=== PATIENT | female | born 1955 | race Caucasian/White ===

== ENCOUNTER 2019-07-15 07:30 | Inpatient (IN) | payer MEDICARE, MEDICAID ==
[~2019-07-15] VITALS: Ht 162.6 cm; Wt 64.9 kg
[~2019-07-15 07:30] MED LIST: Pantoprazole Inj IVP ONE; SIMVASTATIN20 MG ORAL; Vancomycin 1gm/D5W 275ml IVPB ONE; WELLBUTRIN SR200 MG ORAL
[2019-08-05] VITALS (12 sets, daily range): BP systolic 105–131; BP diastolic 56–78
[2019-08-05] MEDS ORDERED: Vancomycin 1gm vial IVPB ONE (06:29)
[2019-08-05] MEDS ORDERED: Rocuronium Bromide 50mg/5ml Inj IV ONE (06:29)
[2019-08-05] MEDS ORDERED: Pantoprazole Inj ONE (06:29)
[2019-08-05] MEDS ORDERED: Sodium Chloride 10ml vial INJ ONE (06:37)
[2019-08-05] MEDS ORDERED: LR 1000ml 1,000 ML IVLG SCH (06:52)
[2019-08-05] MEDS ORDERED: Lidocaine 1% MPF 10mg/ml 5ml ONE (06:57)
[2019-08-05] MEDS ORDERED: Dexamethasone 4mg/ml vial ONE (06:57)
--- NOTE | 2019-08-05 06:57 | Immediate Post-Op Evaluation ---
Immediate Post-Op Evalulation Immediate Post-Op Evalulation Procedure: TLIF L4-5, L5-S1 Date of Evaluation: Aug 05, 2019 Time of Evaluation: 10:42 IV Fluids: 500 LR Blood Products: 0 Estimated Blood Loss: 40 Urinary Output: 195 Blood Pressure Systolic: 131 Blood Pressure Diastolic: 74 Pulse Rate: 76 Respiratory Rate: 16 O2 Sat by Pulse Oximetry: 100 Temperature (Fahrenheit): 98 Pain Score (1-10): 2 Nausea: No Vomiting: No Complications 0 Patient Status: awake, reacts, patent, extubated, none Hydration Status: adequate Dru Gram Vancomycin IV Given Within 1 Hr of Incision: Yes Time Given: 07:45 Miah Panda MD Aug 05, 2019 06:57
[2019-08-05] MEDS ORDERED: Lidocaine 1% Plain 30 ml INJ ONE (06:58)
[2019-08-05] MEDS ORDERED: Thrombin 5000 units spray kit TOPIC ONE (06:59)
[2019-08-05] MEDS ORDERED: Bacitracin Oint 15gm Tube TOPIC ONE (06:59)
[2019-08-05] MEDS ORDERED: Thrombin 5000 units TOPIC ONE ×2 (06:59→07:01)
[2019-08-05] MEDS ORDERED: Bupivacaine w/Epi 0.5% 30ml Vial INJ ONE (07:00)
[2019-08-05] MEDS ORDERED: Metoclopramide 10mg/2ml Inj IVP PRN (07:00)
[2019-08-05] MEDS ORDERED: Labetalol 5mg/ml 20ml vial IV PRN (07:00)
[2019-08-05] MEDS ORDERED: DiphenhydrAMINE 50mg/ml Inj IVP PRN (07:00)
[2019-08-05] MEDS ORDERED: LORazepam Inj 2mg/ml 1ml IV PRN (07:00)
[2019-08-05] MEDS ORDERED: Atropine Sulfate 0.4mg/ml inj IVP PRN (07:00)
[2019-08-05] MEDS ORDERED: Vancomycin 1gm/D5W 275ml IVPB ONE ×2 (07:00)
[2019-08-05] MEDS ORDERED: Gelfoam Absorbable 1gm powder pkt TOPIC ONE (07:00)
[2019-08-05] MEDS ORDERED: Bacitracin 50000 Units Vial ONE (07:00)
[2019-08-05] MEDS ORDERED: HYDROcodone/Acetamin 5/325 tab ORAL PRN (07:00)
[2019-08-05] MEDS ORDERED: Acetaminophen (Non formulary) 100 ML IV ONE (07:00)
[2019-08-05] MEDS ORDERED: Gelfoam Size TOPIC ONE (07:00)
[2019-08-05] MEDS ORDERED: Pantoprazole Inj IVP ONE (07:00)
[2019-08-05] MEDS ORDERED: fentaNYL 100 mcg/2 mL IV PRN (07:00)
[2019-08-05] MEDS ORDERED: oxyCODONE HCL/Acetaminophen 5/325mg ORAL PRN (07:00)
[2019-08-05] MEDS ORDERED: Ketorolac 30mg Inj IV PRN ×2 (07:00)
[2019-08-05] MEDS ORDERED: Meperidine 50mg/ml Inj(FOR RIGORS ONLY) IVP PRN (07:00)
[2019-08-05] MEDS ORDERED: Midazolam 2mg/2ml Inj IVP PRN (07:00)
[2019-08-05] MEDS ORDERED: Hydromorphone 0.5mg/0.5ml inj IVP PRN (07:00)
[2019-08-05] MEDS ORDERED: HYDROcodone/Acetamin 7.5/325 tab ORAL PRN ×2 (07:00→12:00)
[2019-08-05] MEDS ORDERED: Heparin 1000 units/ml 1ml Vial ONE (07:01)
[2019-08-05] MEDS ORDERED: fentaNYL 100 mcg/2 mL IV ONE (07:09)
--- NOTE | 2019-08-05 07:14 | Anethesia Preoperative Eval ---
Anesthesia Pre-op PMH/ROS General Date of Evaluation: Aug 05, 2019 Time of Evaluation: 07:36 Anesthesiologist: Sean ASA Score: ASA 2 Mallampati Score Class I : Soft palate, uvula, fauces, pillars visible Class II: Soft palate, uvula, fauces visible Class III: Soft palate, base of uvula visible Class IV: Only hard plate visible Mallampati Classification: Class I Surgeon: Emerson Diagnosis: Back Pain Surgical Procedure: TLIF L4-5, L5-S1 Anesthesia History: none Family History: no anesthesia problems Allergies: Coded Allergies: No Known Allergies (Unverified , 07/13/19) Medications: see eMAR Patient NPO?: Yes NPO Date: Aug 04, 2019 NPO Time: 1999 Past Medical History Cardiovascular: Reports: other - HL Neurologic/Psychiatric: Reports: depression/anxiety PSxH Narrative: C/S X 3, ZARI, R Ear repair Anesthesia Pre-op Phys. Exam Physician Exam Last Vital Signs Date Time Temp Pulse Resp B/P (MAP) Pulse Ox O2 Delivery O2 Flow Rate FiO2 08/05/19 07:06 97.5 69 18 125/77 (93) 97 Constitutional: NAD Neurologic: CN 2-12 intact Cardiovascular: RRR Respiratory: CTA Gastrointestinal: S/NT/ND Airway Exam Mallampati Score: Class I MO: full ROM: full Teeth: missing, intact Anesthesia Pre-op A/P Risk Assessment & Plan Assessment: ASA 2 Plan: GA, SED, GlideScope Go Status Change Before Surgery: No Pre-Antibiotics Dru Gram Vancomycin IV Given Within 1 Hr of Incision: Yes Time Given: 07:45 Miah Panda MD Aug 05, 2019 07:14
[2019-08-05] MEDS ORDERED: NS Irrig 1000ml IRRIG ONE ×2 (07:18→08:03)
[2019-08-05] MEDS ORDERED: LR 1000ml ONE (07:30)
[2019-08-05] MEDS ORDERED: Sterile Water Irrig 1000ml IRRIG ONE (07:30)
[2019-08-05] MEDS ORDERED: Propofol 1,000mg/ 100ml btl IV ONE (07:30)
--- NOTE | 2019-08-05 07:48 | Pre-Procedure Note/Attestation ---
Pre-Procedure Note/Attestation Complete Prior to Procedure Planned Procedure: bilateral Procedure Narrative: posterior lumbar decompressive surgery, discectomy at the L4-L5 level bilaterally, bilateral L5-S1 lumbar decompressive surgery with interspinous fusion with use of titanium cage and plates, arthrodesis and use of allograft, autograft and bone marrow aspirate. Attestation I attest that I discussed the nature of the procedure; its benefits; risks and complications; and alternatives (and the risks and benefits of such alternatives ), prior to the procedure, with the patient (or the patient's legal compliance representative). I attest that, if there was a reasonable possibility of needing a blood transfusion, the patient (or the patient's legal compliance representative) was given the [place] Department [employer] Services standardized written summary, pursuant to the Anthony Kamryn Blood Safety Act ([place] Health and Safety Code # 1645, as amended). I attest that I re-evaluated the patient just prior to the surgery and that there has been no change in the patient's H&P, except as documented below: Leda Norman MD Aug 05, 2019 07:48
--- NOTE | 2019-08-05 08:19 | NUR ---
CASE MANAGEMENT:REVIEW 63 YR OLD FEMALE HERE FOR ELECTIVE SURGERY SI: LUMBAR RADICULOPATHY AND DISC HERNIATION 97.5 69 18 125/77 97% ON RA IS: TO SURGERY: LUMBAR DECOMPRESSIVE SURGERY : WILL GO TO MED/SURG POST OP
[2019-08-05] MEDS ORDERED: Neostigmine 1mg/ml 10ml Inj ONE (09:25)
[2019-08-05] MEDS ORDERED: Glycopyrrolate 0.2mg/ml 1ml Vial ONE (09:25)
--- NOTE | 2019-08-05 10:56 | Brief Operative Note ---
Immediate Post Operative Note Operative Note Chief Complaint: Intractablelow back pain and radiculopathy Pre-op Diagnosis: 1. Intractabel low back pain Disc collapse L5-S1 Herniated disc L4-5 lack of improvement from conservative care and epidural injections Procedure: 1. B L4 hemilam, medial facetectomy and foraminotomy 2. R L4-5 discectomy 3. B L5 hemilam medial facetectomy and foraminotomy 4. Interspinous fusion L5-S1 12 mm Lanx system 5. [place] local bone from lamina for grafting 6. Bilateral posterolateral arthrodesis L5-S1 7. [place] bnone marrow left iliac crest crest 8. Microdissection 9. Supervision, and interpretation of fluoroscopy for spinal localization and instrumentation 10. Application of epidural fact graft L45 L5-S1 bilateral 11. Microdissection 12. Added complexity for closure of incision 13. Bilateral S1 neurolysis Post-op Diagnosis: same as pre-op Findings: consistent w/pre-op dx studies Surgeon: Leda Norman MD Military Cook: Michael Franklin MD Anesthesiologist: Dr. Estrada Anesthesia: general Specimen: yes - L4-5 disc Complications: none Condition: stable Fluids: 1.0 L crystalloids Estimated Blood Loss: volume - 50 Drains: none Implant(s) used?: Yes - Lanx titanium implant Leda Norman MD Aug 05, 2019 10:56
[2019-08-05] MEDS ORDERED: Milk of Magnesia 30ml Ud ORAL PRN (11:00)
[2019-08-05] MEDS ORDERED: Cyclobenzaprine 10mg Tab ORAL PRN (11:00)
[2019-08-05] MEDS ORDERED: traMADol 50mg tab ORAL PRN (11:00)
--- NOTE | 2019-08-05 11:07 | General Progress Note ---
Progress Note Progress Note Neurosurgery Post op S/ Comfortable no incisional pain or leg pain O/ Last 24 Hour Vital Signs Date Time Temp Pulse Resp B/P (MAP) Pulse Ox O2 Delivery O2 Flow Rate FiO2 08/05/19 10:50 72 16 117/66 100 Nasal Cannula 3 08/05/19 10:45 67 17 121/68 100 Nasal Cannula 3 08/05/19 10:35 64 15 119/65 100 Simple Mask 6 08/05/19 10:33 72 16 126/71 100 Simple Mask 6 08/05/19 10:31 98.0 78 14 131/74 100 Simple Mask 6 08/05/19 10:29 76 16 100 08/05/19 07:10 Room Air 08/05/19 07:06 97.5 69 18 125/77 (93) 97 Alert and oriented x 4 smiling MAEW Normal sensation in the legs bilaterally Incision is C/D/I doing well family updated Admit after recovery PT Lumbar brace. Leda Norman MD Aug 05, 2019 11:07
--- NOTE | 2019-08-05 11:37 | NUR ---
NURSE NOTES: Patient is in bed awake and able to verbalize needs. Stable. Denies pain or SOB. Patient is oriented to room, call light and unit. patient encouraged to use call light for assistance, verbalized understanding. Surgical dressing is clean, dry, and intact. Patient is in bed in locked and lowest position with call light within reach. All needs met at this time. Will continue to monitor.
[2019-08-05] MEDS ORDERED: HYDROmorphone 1mg/ml Carpuject IVP PRN (12:00)
[2019-08-05] MEDS ORDERED: NS w/KCl 20mEq 1000ml 1,000 ML IV SCH (13:00)
--- NOTE | 2019-08-05 15:24 | Diagnostic Imaging Report ---
Indication: Intraoperative imaging COMPARISON: None FINDINGS: 3 fluoroscopic images were obtained intraoperatively. Localization followed by interspinous hardware at the L5-S1 level noted. Fluoroscopic time 10 seconds. IMPRESSION: Intraoperative imaging as described above
--- NOTE | 2019-08-05 16:20 | NUR ---
NURSE NOTES: Patient voided. No complaints of burning or discomfort noted.
--- NOTE | 2019-08-05 17:06 | NUR ---
P.T Note: P.T evaluation completed and tx initiated spinal protocol. Please refer to P.T evaluation for current functional status. Skilled P.T service is warranted to ensure safety and compliance with spinal/movement precautions following L-spine surgery.
--- NOTE | 2019-08-05 17:15 | Operative Note - Dictated ---
DATE OF OPERATION: 08/05/2019 PREOPERATIVE DIAGNOSES: 1. Intractable back pain, right lower extremity radiculopathy. 2. Herniated disk at L4-5 level with central canal stenosis, nerve impingement. 3. Disk collapse at L5-S1 level with a disk herniation, central canal stenosis, and bilateral foraminal stenosis. 4. Lack of improvement from conservative measures and interventional epidural injections. POSTOPERATIVE DIAGNOSES: 1. Intractable back pain, right lower extremity radiculopathy. 2. Herniated disk at L4-5 level with central canal stenosis, nerve impingement. 3. Disk collapse at L5-S1 level with a disk herniation, central canal stenosis, and bilateral foraminal stenosis. 4. Lack of improvement from conservative measures and interventional epidural injections. PROCEDURE: 1. Right L4 hemilaminectomy, medial facetectomy, foraminotomy, and microdiskectomy. 2. Left L4 hemilaminotomy, medial facetectomy, and foraminotomy with central decompression and ligamentectomy. 3. Right L5 hemilaminotomy, medial facetectomy, and foraminotomy with central and lateral ligamentectomy. 4. Left L5 hemilaminectomy, medial facetectomy, and foraminotomy with ligamentectomy. 5. [place] of local bone from lamina for grafting. 6. Aspiration of bone marrow from the left iliac crest for grafting. 7. Interspinous arthrodesis with 12 mm Lanx system. 8. Posterolateral arthrodesis with autologous bone graft, allograft, and iliac crest bone marrow aspirate at L5-S1 bilaterally. 9. Neurolysis of the S1 roots bilaterally. 10. Application of epidural fat graft to L4-L5 and L5-S1 laminar defects bilaterally. 11. Intraoperative microdissection using operative microscope. 12. Intraoperative use, interpretation, and supervision of fluoroscopy for localization of spine and spinal instrumentation. 13. Plastic surgical closure of 8 cm lumbar incision, added degree of difficulty due to extensive lower back tattoo. SURGEON: Leda Norman M.D. EGG TRAYER SURGEON: Michael Franklin M.D. ANESTHESIOLOGIST: Dr. Panda. ANESTHESIA TYPE: General endotracheal anesthesia. ESTIMATED BLOOD LOSS: Less than 50 mL. IV FLUIDS: 1 L. Urine output, 200 mL. SPECIMEN: Disk from L4-L5 level. INDICATION: The patient is a pleasant 63-year-old woman with complaint of progressive worsening of low back pain and radiculopathy. She has undergone a number of conservative measures including interventional pain injections, lumbar epidural injections without sustained improvement. Imaging studies of the lumbar spine were performed. The patient's clinical complaint of severe low back pain and radiculopathy were consistent with the objective MRI findings. Due to lack of improved from the less invasive options, the patient was deemed a surgical candidate. Risks of the operation including, but not limited to the risk of infection, bleeding, nerve damage, paralysis, spinal fluid leakage, hardware failure/pseudoarthrosis requiring revision surgery, adjacent segment disease requiring additional treatments after the surgery including interventional pain injections and adjacent segment fusion were all discussed with the patient in detail. Risk of anesthesia including coma and were discussed with her as well. She voiced understanding of the risks and benefits and signed the consent to proceed. DETAILS OF PROCEDURE: The patient was taken to the operating room. She was identified. She underwent an uneventful endotracheal intubation. Neuromonitoring leads were attached. Mari catheter was inserted. The patient was placed prone on a Larry frame. Back was pre-prepped. The lumbar region was localized with fluoroscopy in AP and lateral views. The back was prepped and draped in sterile fashion. Circulating nurse resided consented procedure and time-out was observed. Microscope was brought to the field. Incision was infiltrated using Marcaine and epinephrine. Dissection was carried down to the level of the subcutaneous fascia. Through a separate fascial incision, a fat graft was removed. Specimen was placed in antibiotic irrigation. Lumbar dorsal fascia was then opened. The L4 and L5 hemilamina were exposed bilaterally. Intraoperative fluoroscopic images were obtained, which showed correct localization of the intended level. There was complete collapse of the L5-S1 disk space. Using high-speed drill, a bilateral L4 and L5 hemilaminotomies were performed. Central ligamentectomy was carried out using pituitary and Kerrison punches. The medial facets were drilled down at the L4-L5 and L5-S1 levels bilaterally. Superior facet was removed and angled [place]ison foraminal punches were employed to open up the foramina particularly at the L5-S1 level. After decompression, there was significant improvement in the passage of instruments through the foramina at L4-L5 and L5-S1 levels. At the baseline, the neuromonitoring showed a significant delay of the right L5 nerve root by more than 4 milliseconds. With microdissection, the epidural adhesions and venous plexus was gently mobilized and connecting vessels were coagulated. The L4-L5 disk space was exposed using a #4 [place]. There was a large subligamentous disk herniation. Using a #15 blade, annulotomy was performed. Using a pituitary rongeur, a large disk fragment was removed. Smaller disk fragments were also removed with pituitary rongeur. Disk space was irrigated with copious amount of antibiotic irrigation. After the diskectomy, the L5 nerve roots gradually returned to normal signal and amplitude compared to the left side. There was significant improvement in the signaling and the right L5 nerve root signal became equal to the left by the end of the procedure. Attention given to the L5-S1 level. The interspinous ligament was completely removed. Using sequential size rasp, the interspinous connection of the ligament was completely removed and the superior portion of the S1, inferior portion of the L5 spinous processes were completely cleaned from soft tissue. Using multiple sized rasps, the superficial layer of the bone was decorticated. A 12 mm cage was then sized, filled with autologous bone graft, bone marrow aspirate, and allograft. Approximately 30 mL of bone marrow was aspirated from the left iliac crest with a Jamshidi needle through a separate fascial incision. The bone marrow aspirate was handed to a pollution control technician. We then returned approximately 3 mL of highly concentrated portion of the iliac crest bone marrow to the field, which was then mixed with allograft and autograft. Posterolateral arthrodesis then was undertaken by applying bone mixture to the posterolateral recess at the L5-S1 bilaterally. Prior to fixation of the cage in the interspinous level, the Larry frame was flexed and the lumbar lordosis was recreated. The 2 titanium plates were then crimped together and the spinous processes of L5 and S1 were engaged with a titanium teeth. Excellent construct was obtained. The construct was tested with a Ping, which showed complete interdigitation of the plate into the spinous processes. Bone was placed within the interspinous portion above the cage as well. Prior to the insertion of the cage, a fat graft was placed over the lumbar laminotomy defect at the L5-S1 and L4-L5 levels bilaterally. The fat graft protected the epidural space from intrusion of any bony material. The wound was then irrigated with copious amount of antibiotic irrigation. Prior to the insertion of the cage, bilateral S1 nerve roots were carefully mobilized and neurolysis was performed with microsurgical technique. The fascia was reapproximated using 0 Vicryl stitches in intraoperative fashion. Subcutaneous and subcuticular layers were closed using 2-0 and 3-0 Vicryl stitches. The tattoo in the lower lumbar sacral region was carefully reapproximated under the microscope. Added degree of difficulty is noted due to the extra time needed for reapproximation of the dermis. The skin was dressed with Dermabond and Steri-Strips. The patient was extubated iat the end of the case moving all extremities. COMPLICATIONS: None. Leda Norman M.D. DR: KAYLEE JOB#: [id number] CC:
[2019-08-05] MEDS: Docusate Sod/Senna tab ORAL SCH (18:10)
[2019-08-05] MEDS: Docusate 100mg cap ORAL SCH (18:10)
--- NOTE | 2019-08-05 19:46 | NUR ---
HAND-OFF: Report given to Ramon THAPA. Patient is stable.
--- NOTE | 2019-08-05 19:47 | NUR ---
NURSE NOTES: Patient tolerates PO fluids. D/C IVF as ordered.
--- NOTE | 2019-08-05 19:50 | NUR ---
NURSE NOTES: Patient received in bed, awake and alert. Denies pain or discomfort at this time. Call light in reach. Instructed to call for assistance, verbalized understanding. Will monitor.
[2019-08-05] MEDS: Vancomycin 1 GM in D5W 275 ML IVPB SCH (20:11)
[2019-08-05] MEDS: HYDROcodone/Acetamin 7.5/325 tab ORAL PRN (21:40)
--- NOTE | 2019-08-05 23:00 | NUR ---
NURSE NOTES: Pt seen and assessed by Dr. Perez.
--- NOTE | 2019-08-05 23:21 | General Progress Note ---
Assessment/Plan Status Narrative s/p complex spine surgery perioperative antibiotic prophyalxis post op dvt prophyalxis pain control monitor closely dvt prophyalxis iwth scd pt ot Subjective Date patient seen: Aug 05, 2019 Time patient seen: 23:20 Allergies: Coded Allergies: No Known Allergies (Unverified , 07/13/19) Subjective has some pain , happy about the surgery Objective Last 24 Hour Vital Signs Date Time Temp Pulse Resp B/P (MAP) Pulse Ox O2 Delivery O2 Flow Rate FiO2 08/05/19 22:10 98.8 08/05/19 21:00 Room Air 08/05/19 20:00 98.8 76 20 124/70 (88) 96 08/05/19 16:00 98.3 75 20 125/78 (94) 96 08/05/19 12:00 98.6 62 19 119/65 (83) 97 08/05/19 11:19 98.0 62 15 105/56 96 Nasal Cannula 3 08/05/19 11:10 66 13 106/60 96 Nasal Cannula 3 08/05/19 11:00 68 14 109/64 98 Nasal Cannula 3 08/05/19 10:50 72 16 117/66 100 Nasal Cannula 3 08/05/19 10:45 67 17 121/68 100 Nasal Cannula 3 08/05/19 10:35 64 15 119/65 100 Simple Mask 6 08/05/19 10:33 72 16 126/71 100 Simple Mask 6 08/05/19 10:31 98.0 78 14 131/74 100 Simple Mask 6 08/05/19 10:29 76 16 100 08/05/19 07:10 Room Air 08/05/19 07:06 97.5 69 18 125/77 (93) 97 Height (Feet): 5 Height (Inches): 4.00 Weight (Pounds): 143 General Appearance: WD/WN Neck: non-tender Cardiovascular: normal rate, regular rhythm, no JVD Respiratory/Chest: lungs clear Abdomen: soft Extremities: other - moves both legs Alex Perez MD Aug 05, 2019 23:21
[2019-08-06] VITALS: BP 115/77
[2019-08-06 04:00] VITALS: BP 124/72
[2019-08-06 06:45] LABS: ANION GAP 7 mmol/L (5-15); BLOOD UREA NITROGEN 11 mg/dL (7-18); CARBON DIOXIDE 27 MMOL/L (21-32); CHLORIDE 106 MMOL/L (98-107); CREATININE 0.8 MG/DL (0.55-1.30); POTASSIUM 3.8 MMOL/L (3.5-5.1); SODIUM 140 MMOL/L (136-145)
--- NOTE | 2019-08-06 07:39 | NUR ---
HAND-OFF: Report given to Matilde THAPA.
[2019-08-06 08:00] VITALS: BP 136/81
--- NOTE | 2019-08-06 08:11 | NUR ---
NURSE NOTES: Received report from V[place]a THAPA, pt a/a/o x4 seating in bed, eating breakfast with no signs of distress or other issues at this time. surgical dressing c/d/i. IV on the left hand gauge #18 heplock. no c/o of pain. call light within reach. bed in lowest position, side rales up x2. I will f/u as needed. - Per Dr. Norman to call Jeniffer and son to f/u with lumbar brace. called at [phone] s/w Ed who stated that the brace needs to be pre-auth. RN also called Isha CUMMINGS to pls f/u with that. plan to d.c home today. I will f/u as needed.
--- NOTE | 2019-08-06 08:14 | General Progress Note ---
Progress Note Progress Note Neurosurgery POD #1 S/ ding very well. minimal pain. Ambulated in the room. Feels constipated O Last 24 Hour Vital Signs Date Time Temp Pulse Resp B/P (MAP) Pulse Ox O2 Delivery O2 Flow Rate FiO2 08/06/19 04:00 98.2 61 20 124/72 (89) 98 08/06/19 00:00 98.5 68 20 115/77 (90) 98 08/05/19 22:10 98.8 08/05/19 21:00 Room Air 08/05/19 20:00 98.8 76 20 124/70 (88) 96 08/05/19 16:00 98.3 75 20 125/78 (94) 96 08/05/19 12:00 98.6 62 19 119/65 (83) 97 08/05/19 11:19 98.0 62 15 105/56 96 Nasal Cannula 3 08/05/19 11:10 66 13 106/60 96 Nasal Cannula 3 08/05/19 11:00 68 14 109/64 98 Nasal Cannula 3 08/05/19 10:50 72 16 117/66 100 Nasal Cannula 3 08/05/19 10:45 67 17 121/68 100 Nasal Cannula 3 08/05/19 10:35 64 15 119/65 100 Simple Mask 6 08/05/19 10:33 72 16 126/71 100 Simple Mask 6 08/05/19 10:31 98.0 78 14 131/74 100 Simple Mask 6 08/05/19 10:29 76 16 100 on exam Alert and oriented x 4. pleasant and smiling Incision is completely dry Moves all extremities well R leg pain resolved Abdomen Non tender, bloated soft. dong well PT Lumbar brace ordered d/c instructions d/w pt and nursing labs Laboratory Tests Test 08/06/19 05:05 Sodium Level 140 MMOL/L (136-145) Potassium Level 3.8 MMOL/L (3.5-5.1) Chloride Level 106 MMOL/L (98-107) Carbon Dioxide Level 27 MMOL/L (21-32) Anion Gap 7 mmol/L (5-15) Blood Urea Nitrogen 11 mg/dL (7-18) Creatinine 0.8 MG/DL (0.55-1.30) Estimat Glomerular Filtration Rate > 60 mL/min (>60) Glucose Level 94 MG/DL (74-106) Calcium Level 9.0 MG/DL (8.5-10.1) Leda Norman MD Aug 06, 2019 08:13
--- NOTE | 2019-08-06 08:22 | NUR ---
DISCHARGE PLANNING FAXED BRACE ORDER TO [facility] T: [phone] F: [phone] LUMBAR QUICK DRAW BRACE CALLED [facility] AND SPOKE WITH ED. PER ED HE HAS TO SPEAK WITH [facility] REGARDING HOSPITAL'S FINANCIAL RESPONSIBILITY FOR BRACE. ONCE PAYMENT HAS BEEN WORKED OUT THEY WILL DELIVER BRACE NURSING CAN FOLLOW UP WITH COLBY
[2019-08-06] MEDS: Docusate 100mg cap ORAL SCH (08:41)
[2019-08-06] MEDS: Vancomycin 1 GM in D5W 275 ML IVPB SCH (08:41)
[2019-08-06] MEDS: Docusate Sod/Senna tab ORAL SCH (08:41)
--- NOTE | 2019-08-06 09:25 | 48 Hour Post Anesthesia Eval ---
Post Anesthesia Evaluation Procedure: TLIF L4-5, L5-S1 Date of Evaluation: Aug 06, 2019 Airway: patent Nausea: No Vomiting: No Pain Intensity: 0 Hydration Status: adequate Cardiopulmonary Status: at baseline Mental Status/LOC: patient returned to baseline Post-Anesthesia Complications: 0 Follow-up care needed: N/A - further care as per primary team Karlee Basurto MD Aug 06, 2019 09:25
[2019-08-06] MEDS: HYDROcodone/Acetamin 7.5/325 tab ORAL PRN (10:14)
[2019-08-06 12:00] VITALS: BP 111/79
[2019-08-06] MEDS ORDERED: NORCO 10-325 T1 EACH ORAL (13:16)
--- NOTE | 2019-08-06 13:16 | NUR ---
RETIREMENT [facility]ILLAGE MANAGER NOTES BACK BRACE WILL BE DELIVERED @ 1700. NURSE MADE AWARE.
[2019-08-06 16:00] VITALS: BP 115/71
--- NOTE | 2019-08-06 17:30 | NUR ---
NURSE NOTES: called Jeniffer and son to f/u with delivery of the lumbar brace at [phone] left message. awaiting for response. also called Director of medication manager at [phone] stated that lumbar brace would be here any time. I will f/u as needed.
--- NOTE | 2019-08-06 17:56 | NUR ---
NURSE NOTES: Received order to d/c patient. discharge instructions given to patient as well as RX for [place] PO, patient stated that she will fill out at her regular pharmacy. IV removed prior to d/c. - pt stated that she doesn't want to wait for her lumbar brace since lift has been waiting for her. patient stated that she will be back tomorrow morning to pickling grader her brace. Nevertheless to say patient was her own regular brace on. patient verbalized understanding that she must wear brace at all times. - pt left the floor walking since REFUSED to be taking down on a w/c. I will f/u as needed.
--- NOTE | 2019-08-06 18:06 | NUR ---
NURSE NOTES: Per [facility] Director of , lumbar brace will be deliver around 1830.
--- NOTE | 2019-08-07 21:53 | Discharge Summary ---
Discharge Summary Discharge Summary _ DATE OF ADMISSION: 08/05/2019 DATE OF DISCHARGE: 08/06/2019 DISCHARGED BY: Dr. Leda Norman SURGEON: Dr. Leda Norman CABLE SYSTEMS INSTALLER: Dr. Alex Perez BRIEF HOSPITAL COURSE: Patient is a 63-year-old female, who had intractable back pain, and right lower extremity radiculopathy. She had a herniated disc at L4-L5 level with central canal stenosis, with nerve impingement. At L5-S1, there was disc collapse with disc herniation, central canal stenosis and bilateral foraminal stenosis. She had lack of improvement from conservative measures and interventional epidural injections. She was admitted on 08/05/2019 and underwent lumbar surgery. She tolerated procedure well. Surgery was uneventful. Post-operatively, patient was admitted for post-op care. She was placed on SCDs for DVT prophylaxis and was encouraged use of incentive spirometer. Patient was given pain management. She was seen by PT. Diet was advanced. Incision was clean, dry and intact. Patient was ambulating well with good pain control and was tolerating diet. Patient was eventually cleared for discharge home. FINAL DIAGNOSES: 1. Intractable back pain, right lower extremity radiculopathy. 2. Herniated disk at L4-5 level with central canal stenosis, nerve impingement. 3. Disk collapse at L5-S1 level with a disk herniation, central canal stenosis, and bilateral foraminal stenosis. 4. Lack of improvement from conservative measures and interventional epidural injections. PROCEDURE: 1. Right L4 hemilaminectomy, medial facetectomy, foraminotomy, and microdiskectomy. 2. Left L4 hemilaminotomy, medial facetectomy, and foraminotomy with central decompression and ligamentectomy. 3. Right L5 hemilaminotomy, medial facetectomy, and foraminotomy with central and lateral ligamentectomy. 4. Left L5 hemilaminectomy, medial facetectomy, and foraminotomy with ligamentectomy. 5. [place] of local bone from lamina for grafting. 6. Aspiration of bone marrow from the left iliac crest for grafting. 7. Interspinous arthrodesis with 12 mm Lanx system. 8. Posterolateral arthrodesis with autologous bone graft, allograft, and iliac crest bone marrow aspirate at L5-S1 bilaterally. 9. Neurolysis of the S1 roots bilaterally. 10. Application of epidural fat graft to L4-L5 and L5-S1 laminar defects bilaterally. 11. Intraoperative microdissection using operative microscope. 12. Intraoperative use, interpretation, and supervision of fluoroscopy for localization of spine and spinal instrumentation. 13. Plastic surgical closure of 8 cm lumbar incision, added degree of difficulty due to extensive lower back tattoo. (Refer to Operative Report) DISCHARGE DISPOSITION: Patient was discharged home. DISCHARGE MEDICATIONS: Refer to Medication Reconciliation Sheet. DISCHARGE INSTRUCTIONS: Post-op instructions given. No bending, lifting or twisting until cleared. Wear lumbar brace when out of bed. In case of fever, greater than 101, call Dr. Serrato. Follow-up in 2 weeks and call for appointment. Keep wound dry for 4 days. I have been assigned to complete a DC summary on this account, I was not involved with the patient's management.--MATIAS Porter Jacqueline Robles NP Aug 07, 2019 21:53
== END 2019-08-06 17:35 | disposition home or self-care (01) | DRG 460 ==
LOC: SDSOVERFLO 08-05 05:56 → 3E 08-05 11:35
PROC: 07DR0ZZ Extraction of Iliac Bone Marrow, Open Approach (ICD-10-PCS; principal; 2019-08-05 07:30)
PROC: 0SB20ZZ Excision of Lumbar Vertebral Disc, Open Approach (ICD-10-PCS; principal; 2019-08-05 07:30)
PROC: 01NB0ZZ Release Lumbar Nerve, Open Approach (ICD-10-PCS; principal; 2019-08-05 07:30)
PROC: 0SG30AJ Fusion of Lumbosacral Joint with Interbody Fusion Device, Posterior Approach, Anterior Column, Open Approach (ICD-10-PCS; principal; 2019-08-05 07:30)
PROC: 0SG00AJ Fusion of Lumbar Vertebral Joint with Interbody Fusion Device, Posterior Approach, Anterior Column, Open Approach (ICD-10-PCS; principal; 2019-08-05 07:30)
DX: M51.16 Intervertebral disc disorders with radiculopathy, lumbar region (principal); M51.17 Intervertebral disc disorders with radiculopathy, lumbosacral region; M48.061 Spinal stenosis, lumbar region without neurogenic claudication; M48.07 Spinal stenosis, lumbosacral region
CPT/HCPCS: 36415; 72020; 76000; 80048; 86850; 86900; 86901; 87081; C9399; J2405; J2710; J2765